=== PATIENT | male | born 1960 | race Caucasian/White ===

== ENCOUNTER 2017-12-23 10:25 | Emergency (ER) | payer OTHER ==
[~2017-12-23] VITALS: Ht 175.3 cm; Wt 92.6 kg
[~2017-12-23 10:25] MED LIST: IBUP-1050 PO
[2017-12-23 10:33] VITALS: TEMP 36.9; Ht 175.3 cm; Wt 92.6 kg
--- NOTE | 2017-12-23 11:24 | DIAGNOSTIC IMAGING REPORT ---
SINGLE VIEW CHEST CLINICAL HISTORY: Cough. FINDINGS: An AP, portable, upright chest radiograph is obtained. No prior studies are available for comparison at the time of dictation. The examination is degraded by portable technique and patient rotation. The heart is mildly enlarged. The pulmonary vasculature is noncongested. There is no airspace consolidation or large pleural effusion. No pneumothorax is seen. The bony thorax is grossly intact. IMPRESSION: Mild cardiac enlargement with no acute cardiopulmonary abnormality. Electronically signed by: Janusz Colón M.D. 12/23/2017 11:23 AM Dictated Date/Time: 12/23/2017 11:22 AM
[2017-12-23 11:39] LABS: ALBUMIN 3.4 gm/dl (3.4-5.0); ALT/SGPT 32 U/L (12-78); BLOOD UREA NITROGEN 9 mg/dl (7-18); CALCIUM 7.9 mg/dl (8.5-10.1); CARBON DIOXIDE 30 mmol/L (21-32); CREATININE 0.94 mg/dl (0.60-1.40); GLUCOSE 87 mg/dl (70-99); POTASSIUM 3.8 mmol/L (3.5-5.1); SODIUM 139 mmol/L (136-145)
[2017-12-23 11:40] LABS: INFLUENZA B ANTIGEN Neg for Influ B (NEG)
[2017-12-23 11:44] LABS: ALKALINE PHOSPHATASE 86 U/L (45-117); AST/SGOT 23 U/L (15-37); TOTAL PROTEIN 6.9 gm/dl (6.4-8.2)
[2017-12-23] MEDS ORDERED: VNTHFA/IN INH (11:44)
[2017-12-23 11:46] LABS: HEMATOCRIT 42.3 % (42-52); HEMOGLOBIN 14.9 g/dL (14.0-18.0); MEAN CELL VOLUME 87.4 fL (80-100); MEAN CORPUSCULAR HEMOGLOBIN 30.8 pg (25-34); MEAN CORPUSCULAR HGB CONC 35.2 g/dl (32-36); MEAN PLATELET VOLUME 8.6 fL (7.4-10.4); PLATELET COUNT 99 K/uL (130-400); RED CELL DISTRIBUTION WIDTH CV 13.1 % (11.5-14.5); RED CELL DISTRIBUTION WIDTH SD 41.9 fL (36.4-46.3); WHITE BLOOD COUNT 3.53 K/uL (4.8-10.8)
[2017-12-23 11:47] LABS: BASO % 0.3 %; BASO ABS # 0.01 K/uL (0-0.2); EOS % 2.5 %; EOS ABS # 0.09 K/uL (0-0.5); IG# 0.02 K/uL (0.00-0.02); LYMPH % 28.3 %; NEUT % 51.3 %; NEUT ABS # 1.81 K/uL (1.4-6.5)
[2017-12-23] MEDS ORDERED: AZITHROMYCIN 250 MG TAB PO STA (12:05)
[2017-12-23] MEDS ORDERED: BENZONATATE 100MG CAP PO STA (12:05)
[2017-12-23] MEDS ORDERED: BENZ100C84 PO (12:07)
[2017-12-23] MEDS ORDERED: PRED20TA2 PO (12:07)
[2017-12-23] MEDS ORDERED: AZIT-60 PO (12:07)
--- NOTE | 2017-12-23 12:08 | EMERGENCY ROOM VISIT NOTE ---
History First contact with patient: 10:47 Chief Complaint: FLU LIKE SX Stated Complaint: FEVER,COUGH,BURNING THROAT History of Present Illness The patient is a 57 year old male who presents to the Emergency Room via private vehicle accompanied by female with complaints of "fever, cough, burning throat". The patient states that for about 1 week now he has been experiencing irritation/coughing/chest congestion. He states that he has a history of bronchitis. He has felt like this before. He states that usually received steroids, antibiotics, inhaler and cough medicine with good relief. The cough is dry and nonproductive in nature. It is worse when entering into the cold weather outside. 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 He has been using NyQuil with minimal relief. He has also been taking ibuprofen. He denies any history of lung or heart problems. He also describes intermittent fever/chills. Review of Systems A complete 10-point Review of Systems was discussed with the patient, with pertinent positives and negatives listed in the History of Present Illness. All remaining Review of Systems questions can be considered negative unless otherwise specified. Past Medical/Surgical History Medical Problems: (1) No significant medical problems (2) No significant past surgical history Social History Smoking Status: Never Smoker Alcohol Use: occasionally Marital Status: Housing Status: lives with friends Current/Historical Medications Scheduled Azithromycin (Zithromax), 250 MG PO DAILY Benzonatate (Tessalon Perles), 100 MG PO TID Prednisone (Prednisone Tab), 2 TAB PO DAILY Scheduled PRN Albuterol Hfa (Ventolin Hfa), 2-4 PUFFS INH Q6H PRN for SOB/Wheezing Ibuprofen (Advil), 400 MG PO Q6 PRN for Headache or Pain Physical Exam Vital Signs Date Time Temp Pulse Resp B/P (MAP) Pulse Ox O2 Delivery O2 Flow Rate FiO2 12/23/17 12:38 63 16 126/78 95 12/23/17 10:33 36.9 78 18 132/78 95 Room Air Physical Exam VITAL SIGNS - Vital signs and nursing notes were reviewed. Stable. GENERAL - 57-year-old male appearing his stated age who is in no acute distress. Communicates well with provider and answers questions appropriately. SKIN - Without rashes. HEAD - NC/AT. EYES - PERRL with EOMI bilaterally. Sclera anicteric. EARS - No deformities of external structures noted on gross examination bilaterally. External auditory canals without discharge or otorrhea. Tympanic membranes pearly willett without retraction or bulging. No fluid or purulent material visualized behind the TM. Handle of malleus, umbo, cone of light, pars tensa/flaccid all easily visualized. NOSE - Midline and without cyanosis. No epistaxis or purulent drainage noted. MOUTH/OROPHARYNX - Without perioral cyanosis. Buccal mucosa pink and moist and without leukoplakia. Tongue midline with equal elevation of palate bilaterally. No tonsillar hypertrophy, erythema, or exudates noted. Fair dentition noted. NECK - Neck with FROM. Supple to palpation. No lymphadenopathy noted. No nuchal rigidity. LUNGS - Chest wall symmetric without accessory muscle use, intercostals retractions, or central cyanosis. Normal vesicular breath sounds CTA B/L. No wheezes, rales, or rhonchi appreciated. CARDIAC - RRR with S1/S2. No murmur, rubs, or gallops appreciated. EXTREMITIES - No clubbing or peripheral cyanosis. No pretibial edema present. + 5/5 strength noted in UE/LE bilaterally. NEUROLOGIC - Cranial nerves II through XII grossly intact. Sensory intact to light touch throughout. PSYCH - A&O,. and cooperates fully with examiner. Pt is very pleasant and interacts well with examiner. Medical Decision & Procedures ER Provider Diagnostic Interpretation: SINGLE VIEW CHEST CLINICAL HISTORY: Cough. FINDINGS: An AP, portable, upright chest radiograph is obtained. No prior studies are available for comparison at the time of dictation. The examination is degraded by portable technique and patient rotation. The heart is mildly enlarged. The pulmonary vasculature is noncongested. There is no airspace consolidation or large pleural effusion. No pneumothorax is seen. The bony thorax is grossly intact. IMPRESSION: Mild cardiac enlargement with no acute cardiopulmonary abnormality. Electronically signed by: Janusz Colón M.D. 12/23/2017 11:23 AM Dictated Date/Time: 12/23/2017 11:22 AM Laboratory Results 12/23/17 11:01 Red Blood Count 4.84, Mean Corpuscular Volume 87.4, Mean Corpuscular Hemoglobin 30.8, Mean Corpuscular Hemoglobin Concent 35.2, Mean Platelet Volume 8.6, Neutrophils (%) (Auto) 51.3, Lymphocytes (%) (Auto) 28.3, Monocytes (%) (Auto) 17.0, Eosinophils (%) (Auto) 2.5, Basophils (%) (Auto) 0.3, Neutrophils # (Auto ) 1.81, Lymphocytes # (Auto) 1.00, Monocytes # (Auto) 0.60, Eosinophils # (Auto ) 0.09, Basophils # (Auto) 0.01 12/23/17 11:01 Test 12/23/17 11:01 12/23/17 11:07 White Blood Count 3.53 K/uL (4.8-10.8) Red Blood Count 4.84 M/uL (4.7-6.1) Hemoglobin 14.9 g/dL (14.0-18.0) Hematocrit 42.3 % (42-52) Mean Corpuscular Volume 87.4 fL (80-100) Mean Corpuscular Hemoglobin 30.8 pg (25-34) Mean Corpuscular Hemoglobin Concent 35.2 g/dl (32-36) Platelet Count 99 K/uL (130-400) Mean Platelet Volume 8.6 fL (7.4-10.4) Neutrophils (%) (Auto) 51.3 % Lymphocytes (%) (Auto) 28.3 % Monocytes (%) (Auto) 17.0 % Eosinophils (%) (Auto) 2.5 % Basophils (%) (Auto) 0.3 % Neutrophils # (Auto) 1.81 K/uL (1.4-6.5) Lymphocytes # (Auto) 1.00 K/uL (1.2-3.4) Monocytes # (Auto) 0.60 K/uL (0.11-0.59) Eosinophils # (Auto) 0.09 K/uL (0-0.5) Basophils # (Auto) 0.01 K/uL (0-0.2) RDW Standard Deviation 41.9 fL (36.4-46.3) RDW Coefficient of Variation 13.1 % (11.5-14.5) Immature Granulocyte % (Auto) 0.6 % Immature Granulocyte # (Auto) 0.02 K/uL (0.00-0.02) Platelet Estimate DECREASED Anion Gap 1.0 mmol/L (3-11) Est Creatinine Clear Calc Drug Dose 96.3 ml/min Estimated GFR () 103.2 Estimated GFR (Non- 89.0 BUN/Creatinine Ratio 9.1 (10-20) Calcium Level 7.9 mg/dl (8.5-10.1) Total Bilirubin 0.5 mg/dl (0.2-1) Aspartate Amino Transf (AST/SGOT) 23 U/L (15-37) Alanine Aminotransferase (ALT/SGPT) 32 U/L (12-78) Alkaline Phosphatase 86 U/L (45-117) Troponin I < 0.015 ng/ml (0-0.045) Total Protein 6.9 gm/dl (6.4-8.2) Albumin 3.4 gm/dl (3.4-5.0) Globulin 3.5 gm/dl (2.5-4.0) Albumin/Globulin Ratio 1.0 (0.9-2) Influenza Type A Antigen Neg for Influ A (NEG) Influenza Type B Antigen Neg for Influ B (NEG) Medications Administered Medications (Trade) Dose Ordered Sig/Senia Route Start Time Stop Time Status Last Admin Dose Admin Azithromycin (Zithromax Tab) 500 mg NOW STAT PO 12/23/17 12:05 12/23/17 12:06 DC 12/23/17 12:29 500 MG Benzonatate (Tessalon Perles Cap) 100 mg NOW STAT PO 12/23/17 12:05 12/23/17 12:06 DC 12/23/17 12:29 100 MG Medical Decision Patient was seen and evaluated as above in room B2. He is nontoxic in appearance. Review was performed of nursing notes and vital signs. After obtaining a thorough history and physical examination the above work up was performed. Chest x-ray negative. Bedside EKG was performed per my interpretation reveals normal sinus rhythm, no ectopy or ischemic change. No evidence of ME. CBC does reveal decreased white blood cell count of 3.53. Platelet count decreased. He was educated upon this as this is likely from a viral process. Chemistry panel reveals no evidence of kidney or liver failure. Calcium 7.9. Troponin negative. Flu negative. Stable vital signs. I suspect he is likely experiencing viral bronchitis. He is to have the platelet count repeated with the family doctor. He was educated upon management. He will be given azithromycin, steroids, and Tessalon Perles. He has an inhaler at home. This is given secondary to the duration of his symptoms. He appears stable for outpatient management with close follow-up. The patient was educated upon management, had questions answered prior to discharge, and was discharged home in good condition. In the evaluation and treatment of this patient the following differential diagnoses were entertained: ME, PE, pericarditis, costochondritis, pneumonia, bronchitis, emphysema, COPD, among others. At 12:32 PM on 12/24/2017 I called and spoke with the patient to check and see how he was feeling 24 hours after being seen here in the emergency department he notes that he was feeling much better. I reinforced the importance of following up with the family doctor from his visit today as well as to have his calcium among other labs rechecked. He was educated upon importance of returning if worsening. Impression Primary Impression: Acute bronchitis Departure Information Dispostion Home / Self-Care Condition GOOD Prescriptions Benzonatate (Tessalon Perles) 100 Mg Cap 100 MG PO TID for 5 Days, #15 CAP Prov: Manish Prater PA-C 12/23/17 Azithromycin (ZITHROMAX) 250 Mg Tab 250 MG PO DAILY, #4 TAB Prov: Manish Prater PA-C 12/23/17 Prednisone (Prednisone Tab) 20 Mg Tab 2 TAB PO DAILY for 5 Days, #10 TAB Prov: Manish Prater PA-C 12/23/17 Referrals No Doctor, Assigned (PCP) Patient Instructions My [facility] Additional Instructions You were seen in the emergency department for what is suspected to be acute bronchitis. This likely began as viral, however given the amount of days he been experiencing this will treat for potential bacterial causes. I recommend azithromycin. Your given the first dose here. Next dose around noontime tomorrow. Tessalon Perles. 1 capsule every 8 hours as needed for cough. Please use your inhaler. 1 puff every 4-6 hours as needed for your cough. Prednisone 40 mg daily. Please call your family doctor to schedule follow-up. I recommend repeat of your platelet count. It was low at 99,000 today. This is likely a viral process but to be sure do recommend follow-up. Please return with any new/concerning symptoms.
[2017-12-23 12:38] VITALS: BP 126/78; PULSE 63; O2SAT 95
== END 2017-12-23 12:34 | disposition home or self-care (01) ==
LOC: C.EDB 10:26
DX: J20.9 Acute bronchitis, unspecified (principal)